=== PATIENT | male | born 1990 ===

== ENCOUNTER 2018-01-22 11:44 | Emergency (ER) | payer SELFPAY ==
[2018-01-22] MEDS ORDERED: Tetracaine 0.5% OPTH.SOL 4 ML* 1 DROP BTL ONE (12:18)
[2018-01-22] MEDS ORDERED: BSS OPTH.SOL* BTL OPHTHALMIC ONE (12:18)
[2018-01-22] MEDS ORDERED: Fluorescein Sod TOPICAL 0.6* 0.6 MG TEST OPHTHALMIC ONE (12:18)
[2018-01-22] MEDS ORDERED: Ciprofloxacin 0.3% OPTH.SOL* 2.5 ML BTL RIGHT EYE ONE (12:47)
--- NOTE | 2018-01-22 12:57 | UC ---
Eye Complaint HPI - HPI Summary HPI Summary: Thinks he may have scratches his right eye 4 days ago---I seemed to get better then on Wednesday morning he rubbed his right eye and had return of pain - History of Current Complaint Chief Complaint: UCEye Stated Complaint: (RT) EYE COMPLAINT Time Seen by Provider: 01/22/18 12:17 Hx Obtained From: Patient Onset/Duration: Sudden Onset, Lasting Days - 2, Still Present Timing: Constant Severity Initially: Severe Severity Currently: Severe Pain Intensity: 9 Pain Scale Used: 0-10 Numeric Location of Injury: Other - cornea Character: Throbbing, Foreign Body Sensation Aggravating Factor(s): Light Alleviating Factor(s): Nothing Associated Signs And Symptoms: Positive: Photophobia, Drainage (Clear), Vision Impairment Right - Allergies/Home Medications Allergies/Adverse Reactions: Allergies Allergy/AdvReac Type Severity Reaction Status Date / Time No Known Allergies Allergy Verified 01/22/18 12:11 Home Medications: Home Medications Ibuprofen TAB* [Motrin TAB* 400 MG] 800 mg PO Q8HR PRN 01/22/18 [History Confirmed 01/22/18] PMH/Surg Hx/FS Hx/Imm Hx Previously Healthy: Yes - Surgical History Surgery Procedure, Year, and Place: 12 eye surgeries 8m-6yo - Family History Known Family History: Positive: None - Social History Occupation: Employed Full-time Lives: With Family Substance Use Comment - Amount & Last Used: Daily Smoking Status (MU): Heavy Every Day Tobacco Smoker Amount Used/How Often: 1ppd Have You Smoked in the Last Year: Yes Household Exposure Type: Cigarettes Cessation Counseling: Patient Advised to Stop Review of Systems Constitutional: Negative Skin: Negative Eyes: Blurred Vision - OD, Drainage - OD, Eye Redness - OD ENT: Negative Respiratory: Negative Cardiovascular: Negative Gastrointestinal: Negative Genitourinary: Negative Motor: Negative Neurovascular: Negative Musculoskeletal: Negative Neurological: Negative Psychological: Negative Is Patient Immunocompromised?: No All Other Systems Reviewed And Are Negative: Yes Physical Exam Triage Information Reviewed: Yes Appearance: Well-Appearing, Well-Nourished, Pain Distress Vital Signs: Initial Vital Signs Temp 98.2 F 01/22/18 12:01 Pulse 76 01/22/18 12:01 Resp 16 01/22/18 12:01 BP 129/85 01/22/18 12:01 Pulse Ox 97 01/22/18 12:01 Vital Signs Reviewed: Yes Eye Exam: Normal Eyes: Positive: Conjunctiva Inflamed - right, Discharge - clear ENT Exam: Normal ENT: Positive: Normal ENT inspection, Hearing grossly normal, Nasal drainage. Negative: Trismus, Muffled voice, Hoarse voice Neck exam: Normal Neck: Positive: Supple, Nontender, No Lymphadenopathy Respiratory Exam: Normal Respiratory: Positive: Chest non-tender, No respiratory distress Cardiovascular Exam: Normal Cardiovascular: Positive: Pulses Normal, Brisk Capillary Refill Musculoskeletal Exam: Normal Musculoskeletal: Positive: Strength Intact, ROM Intact, No Edema Neurological Exam: Normal Neurological: Positive: Alert, Muscle Tone Normal Psychological Exam: Normal Psychological: Positive: Normal Response To Family Skin Exam: Normal Re-Evaluation - Re-Evaluation First Eval Change: Improved - ful-nick stain --abrasion at 6 o'clock on cornea. Eye Complaint Course/Dx - Course Course Of Treatment: Ibuprofen, cipro drops, follow with optho. - Differential Dx/Diagnosis Provider Diagnoses: OD Corneal abrasion, nicotine dependent Discharge - Sign-Out/Discharge Documenting (check all that apply): Discharge - Discharge Plan Condition: Stable Disposition: HOME Prescriptions: Ciprofloxacin 0.3% OPTH.ALVERTO* [Cipro 0.3% Opth*] 1 drop RIGHT EYE Q2H #1 btl Ibuprofen TAB* [Motrin TAB* 800 MG] 800 mg PO TID PRN #40 tab PRN Reason: pain Patient Education Materials: Corneal Abrasion (DC), How to Use Eye Drops (ED) Referrals: Priscilla Garcia MD [Medical Doctor] - 5 Days - Billing Disposition and Condition Condition: STABLE Disposition: HOME
== END 2018-01-22 13:01 | disposition home or self-care (01) ==
LOC: UCCORT 11:44
DX: S05.01XA Injury of conjunctiva and corneal abrasion without foreign body, right eye, initial encounter (principal); X58.XXXA Exposure to other specified factors, initial encounter; Y93.9 Activity, unspecified; Y92.9 Unspecified place or not applicable; F17.210 Nicotine dependence, cigarettes, uncomplicated
CPT/HCPCS: 99203; A9270-GY; G0463